=== PATIENT | female | born 1945 | race Caucasian/White ===

== ENCOUNTER → 2017-04-29 | Outpatient (CLI) | payer OTHER ==
[~2017-04-29] MED LIST: PILOCARPINE 2% 15ML OPH; PROPARACAINE 0.5% 15 ML OPH
== END | disposition home or self-care (01) ==
LOC: RAD 10:00
DX: H40.2230 Chronic angle-closure glaucoma, bilateral, stage unspecified (principal)
CPT/HCPCS: 66761